=== PATIENT | female | born 1985 | race Caucasian/White ===

== ENCOUNTER 2017-03-13 21:21 | Emergency (ER) | payer SELFPAY ==
[2015-11-19 11:17] VITALS: Wt 72.6 kg
[~2017-03-13 21:21] MED LIST: ACE3 PO; ACET-1966 PO; ALB18R INH; ALBU8.5H IH; ALPR-429 PO; AMPH30TA10 PO; ASCO250T86 PO; AZIT-18 PO; BCP; BENZ200C15 PO; BUP75 PO; CEPH500C24 PO; CLIN-75 PO; CLIN300C99 PO; CYC10 PO; CYCL10TA29 PO; DEXT10CA2 PO; DEXT10TA9 PO; DICL-195 PO; DICY20TA70 PO; DIPH-740 PO; DOCU-416 PO; DOXY150T6 PO; ESC10 PO; FERR-41 PO; FLUC150T40 PO; GUAI600T57 PO; HYDR-385 PO; HYDR-4309 PO; HYDR25CA83 PO; IBU600 PO; IBU800 PO; IBUP-56 PO; KET10 PO; LEVE500T73 PO; LOR5 PO; LOR5/325 PO; MED150I IM; META-1 PO; METR250 PO; MULT-1379 PO; NAPR-724 PO; NIC10R INH; ONDA4TAB PO; ONDA4TAB97 PO; PER PO; PRE20 PO; PREN-85 PO; PROM5SYR PO; TRAM-420 PO; TRAM-627 PO; VENL37.594 PO; VICODIN
[2017-03-13 21:25] VITALS: BP 139/94
[2017-03-13] MEDS ORDERED: APAP/HYDROCODONE 325/5 TAB PO ONE (21:35)
[2017-03-13] MEDS ORDERED: cefTRIAXone 1 GM VIAL IVP ONE (21:35)
[2017-03-13] MEDS ORDERED: LOR5/325 PO (21:35)
[2017-03-13] MEDS ORDERED: CEF300 PO (21:35)
[2017-03-13] MEDS ORDERED: ACET/HYDROC 5/325MG TH ER ONLY 2 TAB/BOTTLE PO ONE (21:35)
--- NOTE | 2017-03-13 21:36 | ER Report ---
History and Physical Time Seen By MD: 21:26 Hx. of Stated Complaint: SEVERE EAR PAIN L SIDE SINCE LAST WEEK, WORSENING; DIARRHEA HPI/ROS CHIEF COMPLAINT: ear pain HISTORY OF PRESENT ILLNESS: Has had several days of ear pain in left ear. Much worse tonight. Even light touch or gentle movements cause severe pain. No drainage. No fevers. No oral or dental pain. Mild cough. No shortness of breath. Allergies: Coded Allergies: penicillin G (Verified Allergy, Unknown, UNKNOWN, 01/02/17) PT STATES MOTHER SAID SHE HAD A REACTION A CHILD BUT PT DOESN'T KNOW WHAT IT WAS. tramadol (Verified Adverse Reaction, Unknown, seizure, 01/02/17) Home Meds Active Scripts Hydrocodone Bit/Acetaminophen (HYDROCODON-ACETAMINOPHEN 5-325) 1 Each Tablet, 1 EACH PO Q4H Y for PAIN, #8 TAB 0 Refills Prov:ANITA RODRIGUEZ MD 03/13/17 Cefdinir 300 Mg Cap (OMNICEF 300 MG CAP (OR EQUIV)) 300 Mg Cap, 300 MG PO BID, # 20 CAP 0 Refills Prov:ANITA RODRIGUEZ MD 03/13/17 Reported Medications Amphet Asp/Amphet/D-Amphet (ADDERALL 30 MG TABLET) 30 Mg Tablet, 30 MG PO BID Take at 9:00am and noon 12/30/13 Discontinued Scripts Hydrocodone Bit/Acetaminophen (HYDROCODON-ACETAMINOPHEN 5-325) 1 Each Tablet, 1 EACH PO Q4-6H Y for PAIN, #10 TAB Prov:REDDY NOVAK [facility] 01/02/17 Clindamycin Hcl (CLINDAMYCIN HCL) 300 Mg Capsule, 300 MG PO Q6H, #40 CAPSULE Prov:REDDY NOVAK [facility] 01/02/17 Reviewed Nurses Notes: Yes Hx Smoking: Yes Smoking Status: Current: Every Day Smoker Exposure to Second Hand Smoke?: Yes Hx Substance Use Disorder: No Hx Alcohol Use: Yes (occ) Constitutional Vital Sign - Last 24 Hours 03/13/17 21:25 Temp 98.0 Pulse 117 Resp 18 B/P (MAP) 139/94 Pulse Ox 99 O2 Delivery Room Air Physical Exam General Appearance: The patient is alert, tearful, acute distress due to pain. Eyes: Pupils equal and round no injection. ENT: Normal oral mucosa. Moist mucous membranes. TM on the left is bulging, red. Some redness and swelling in canal as well. Neck: Neck is supple and non tender. DIFFERENTIAL DIAGNOSIS: After history and physical exam differential diagnosis was considered for otitis media. Medical Decision Making ED Course/Re-evaluation ED Course Rocephin 1mg IM given. Started on Omnicef. Given Lortab for pain. See instructions. Decision to Disposition Date: Mar 13, 2017 Decision to Disposition Time: 21:34 Depart Departure Latest Vital Signs Vital Signs Date Time Temp Pulse Resp B/P (MAP) Pulse Ox O2 Delivery O2 Flow Rate FiO2 03/13/17 21:25 98.0 117 18 139/94 99 Room Air Impression: Primary Impression: Otitis media Condition: Improved Disposition: HOME OR SELF-CARE New Scripts Hydrocodone Bit/Acetaminophen (HYDROCODON-ACETAMINOPHEN 5-325) 1 Each Tablet 1 EACH PO Q4H Y for PAIN, #8 TAB 0 Refills Prov: ANITA RODRIGUEZ MD 03/13/17 Cefdinir 300 Mg Cap (OMNICEF 300 MG CAP (OR EQUIV)) 300 Mg Cap 300 MG PO BID, #20 CAP 0 Refills Prov: ANITA RODRIGUEZ MD 03/13/17 Patient Instructions: Otitis Media (ED) Additional Instructions: Take the antibiotic Omnicef 300mg twice a day for 3 days. Take Ibuprofen 200mg over the counter tablets, 4 tablets every 8 hours for pain. Take Lortab 5/325, one every 4 hours as needed for pain. Problem Qualifiers Primary Impression: Otitis media Otitis media type: suppurative Chronicity: acute Laterality: left Recurrence: not specified as recurrent Spontaneous tympanic membrane rupture: without spontaneous rupture Qualified Codes: H66.002 - Acute suppurative otitis media without spontaneous rupture of ear drum, left ear ANITA RODRIGUEZ MD Mar 13, 2017 21:36
[2017-03-13] MEDS ORDERED: LIDOCAINE 1% MDV 200 MG/20 ML INJ ONE (21:40)
[2017-03-13] MEDS ORDERED: cefTRIAXone 1 GM VIAL IM ONE (21:40)
== END 2017-03-13 22:00 | disposition home or self-care (01) ==
LOC: ER 21:39
DX: H66.002 Acute suppurative otitis media without spontaneous rupture of ear drum, left ear (principal)
CPT/HCPCS: 96372; 99282; J0696; J2001

== ENCOUNTER 2017-08-18 13:30 | Emergency (ER) | payer SELFPAY ==
[2015-11-19 11:17] VITALS: Wt 74.8 kg
[~2017-08-18 13:30] MED LIST changes: +CEF300 PO; -NAPR-724 PO; +NAPR500T31 PO
[2017-08-18] MEDS ORDERED: CEPH500T7 PO (13:46)
--- NOTE | 2017-08-18 13:47 | ER Report ---
History and Physical Time Seen By MD: 13:33 Hx. of Stated Complaint: PATIENT REPORTS 3 DAYS OF DENTAL PAIN ON THE RIGHT SIDE OF HER MOUTH. SHE CANNOT GET INTO HER DENTIST FOR 2 WEEKS HPI/ROS CHIEF COMPLAINT: Dental pain HISTORY OF PRESENT ILLNESS: 32-year-old female patient presents to emergency room with complaint of dental pain. Patient states she's been having problems with past will days. States she's having a difficult time eating due to the pain. She states she has not had any improvement with any [id number] medication. Patient denies any fevers, chills, nausea, vomiting or diarrhea. Allergies: Coded Allergies: penicillin G (Verified Allergy, Unknown, UNKNOWN, 01/02/17) PT STATES MOTHER SAID SHE HAD A REACTION A CHILD BUT PT DOESN'T KNOW WHAT IT WAS. tramadol (Verified Adverse Reaction, Unknown, seizure, 01/02/17) Home Meds Active Scripts Cephalexin 500 Mg Tab (KEFLEX 500 MG TAB) 500 Mg Tablet, 500 MG PO Q6H, #28 TAB Prov:REDDY NOVAK [facility] 08/18/17 Reported Medications Amphet Asp/Amphet/D-Amphet (ADDERALL 30 MG TABLET) 30 Mg Tablet, 30 MG PO BID Take at 9:00am and noon 12/30/13 Discontinued Scripts Hydrocodone Bit/Acetaminophen (HYDROCODON-ACETAMINOPHEN 5-325) 1 Each Tablet, 1 EACH PO Q4H Y for PAIN, #8 TAB 0 Refills Prov:ANITA RODRIGUEZ MD 03/13/17 Cefdinir 300 Mg Cap (OMNICEF 300 MG CAP (OR EQUIV)) 300 Mg Cap, 300 MG PO BID, # 20 CAP 0 Refills Prov:ANITA RODRIGUEZ MD 03/13/17 Hx Smoking: Yes Smoking Status: Current: Every Day Smoker Exposure to Second Hand Smoke?: Yes Hx Substance Use Disorder: No Hx Alcohol Use: Yes (occ) Constitutional Vital Sign - Last 24 Hours 08/18/17 08/18/17 13:34 13:52 Temp 98.2 Pulse 90 112 Resp 20 16 B/P (MAP) 125/88 103/66 (78) Pulse Ox 97 100 O2 Delivery Room Air Room Air Physical Exam General appearance: Alert no distress. Respiratory: Chest is non tender, lungs are clear to auscultation. Cardiac: Regular rate and rhythm. ENT: Patient has poor dentition, she has several missing teeth and several that have significant caries. DIFFERENTIAL DIAGNOSIS: After history and physical exam differential diagnosis was considered for dental pain Medical Decision Making ED Course/Re-evaluation ED Course Patient is admitted and examined, history and physical were obtained. Differential diagnoses were considered. On examination patient had dental pain. She was offered a dental block. She refused that. Patient will be discharged on antibiotics. She is follow-up with her dentist as soon as possible. Patient verbalized understanding and agreement with plan. Decision to Disposition Date: Aug 18, 2017 Decision to Disposition Time: 13:47 Depart Departure Latest Vital Signs Vital Signs Date Time Temp Pulse Resp B/P (MAP) Pulse Ox O2 Delivery O2 Flow Rate FiO2 08/18/17 13:52 112 16 103/66 (78) 100 Room Air 08/18/17 13:34 98.2 Impression: Primary Impression: Toothache Condition: Improved Disposition: HOME OR SELF-CARE New Scripts Cephalexin 500 Mg Tab (KEFLEX 500 MG TAB) 500 Mg Tablet 500 MG PO Q6H, #28 TAB Prov: REDDY NOVAK 08/18/17 Patient Instructions: Toothache (ED) Additional Instructions: You may take Ibuoprofen or Tylenol as needed for pain. Rinse mouth with warm salt water after every meal. Eat soft foods. Follow up with your dentist as soon as possible, call to make an appointment. Return to the ER if condition worsens. REDDY NOVAK Aug 18, 2017 13:47
[2017-08-18 13:52] VITALS: BP 103/66
== END 2017-08-18 13:53 | disposition home or self-care (01) ==
LOC: ER 13:42
DX: K08.89 Other specified disorders of teeth and supporting structures (principal)
CPT/HCPCS: 99281

== ENCOUNTER 2017-10-07 17:32 | Emergency (ER) | payer SELFPAY ==
[2015-11-19 11:17] VITALS: Wt 79.4 kg
[~2017-10-07 17:32] MED LIST changes: +CEPH500T7 PO
--- NOTE | 2017-10-07 17:37 | ER Report ---
History and Physical Time Seen By MD: 17:38 HPI/ROS CHIEF COMPLAINT: Bump and armpit HISTORY OF PRESENT ILLNESS: This is a 32-year-old female who presents to the emergency department for a "bump in her right armpit". Patient states that about 2-3 days ago she developed a couple bumps in her right axilla, progressively getting worse now significantly more painful unable to completely adduct the arm. Denies fevers or chills. Denies nausea or vomiting. Does appear to be 2 separate abscesses. REVIEW OF SYSTEMS: Respiratory: No cough, no dyspnea. Cardiovascular: No chest pain, no palpitations. Gastrointestinal: No vomiting, no abdominal pain. Musculoskeletal: No back pain. Integumentary: As above. Allergies: Coded Allergies: Penicillins (Verified Allergy, Mild, unknown, 10/07/17) tramadol (Verified Adverse Reaction, Unknown, seizure, 10/07/17) Home Meds Active Scripts Cyclobenzaprine Hcl (CYCLOBENZAPRINE HCL) 10 Mg Tablet, 5-10 MG PO TID PRN for MUSCLE SPASMS, #9 TAB 0 Refills Prov:[facility] 10/07/17 Sulfamethoxazole/Trimet 800-160 Mg Tab (BACTRIM DS TABLET) 1 Each Tablet, 1 TAB PO Q12H, #20 TAB 0 Refills Prov:GRACE CHAMBERS [facility] 10/07/17 Reported Medications Amphet Asp/Amphet/D-Amphet (ADDERALL 30 MG TABLET) 30 Mg Tablet, 30 MG PO BID Take at 9:00am and noon 12/30/13 Discontinued Scripts Cephalexin 500 Mg Tab (KEFLEX 500 MG TAB) 500 Mg Tablet, 500 MG PO Q6H, #28 TAB Prov:REDDY NOVAK [facility] 08/18/17 Past Medical/Surgical History The patient has a past medical and surgical history of wears glasses, cholecystectomy, appendectomy, hysterectomy, tubal ligation, tonsillectomy. Reviewed Nurses Notes: Yes Hx Smoking: Yes Smoking Status: Current: Every Day Smoker Exposure to Second Hand Smoke?: Yes Hx Substance Use Disorder: No Hx Alcohol Use: Yes (occ) Constitutional Vital Sign - Last 24 Hours 10/07/17 10/07/17 17:38 18:24 Temp 98.1 Pulse 100 98 Resp 16 B/P (MAP) 139/96 138/92 (107) Pulse Ox 97 O2 Delivery Room Air Physical Exam General Appearance: The patient is alert, has no immediate need for airway protection and no current signs of toxicity. Eyes: Pupils equal and round no injection. Respiratory: Chest is non tender, lungs are clear to auscultation. Cardiac: regular rate and rhythm. Gastrointestinal: Abdomen is soft and non tender, no masses, bowel sounds normal. Musculoskeletal: Neck: Neck is supple and non tender. Extremities have full range of motion and are non tender. Skin: 2 adjacent abscesses to the right axilla, fluctuant, with some surrounding erythema. No lymphadenopathy. DIFFERENTIAL DIAGNOSIS: After history and physical exam differential diagnosis was considered for abscess. Medical Decision Making ED Course/Re-evaluation ED Course Procedure: Abscess drainage. The patient's abscess was located on the right axilla. I obtained verbal consent from the patient to drain the abscess who was informed about the possibility of bleeding and pain. The abscess was incised with a scalpel and a small amount of purulent drainage was expressed. I irrigated the wound and placed some packing. The patient tolerated the procedure well. The procedure was performed by myself. Decision to Disposition Date: Oct 07, 2017 Decision to Disposition Time: 18:19 Depart Departure Latest Vital Signs Vital Signs Date Time Temp Pulse Resp B/P (MAP) Pulse Ox O2 Delivery O2 Flow Rate FiO2 10/07/17 18:24 98 138/92 (107) 10/07/17 17:38 98.1 16 97 Room Air Impression: Primary Impression: Axillary abscess Condition: Improved Disposition: HOME OR SELF-CARE Referrals: YANE LOUIE MD (PCP) New Scripts Cyclobenzaprine Hcl (CYCLOBENZAPRINE HCL) 10 Mg Tablet 5-10 MG PO TID PRN for MUSCLE SPASMS, #9 TAB 0 Refills Prov: [facility] 10/07/17 Sulfamethoxazole/Trimet 800-160 Mg Tab (BACTRIM DS TABLET) 1 Each Tablet 1 TAB PO Q12H, #20 TAB 0 Refills Prov: [facility]ACE [facility]ERS [facility] 10/07/17 Patient Instructions: Abscess (ED) Additional Instructions: Take the antibiotics as prescribed. apply a warm compress to the wound every few hours. Take the Flexeril for severe pain. Take ibuprofen or Tylenol for moderate pain. Return in 1-2 days to have the packing removed and reevaluation. Drink plenty of water. Get plenty of rest. Return to the ER for any other concerns or worsening symptoms. [facility] Oct 07, 2017 17:37
[2017-10-07] MEDS ORDERED: CYCL10TA29 PO (18:16)
[2017-10-07] MEDS ORDERED: SULF-198 PO (18:16)
[2017-10-07 18:24] VITALS: BP 138/92
== END 2017-10-07 18:24 | disposition home or self-care (01) ==
LOC: ER 17:35
DX: L02.411 Cutaneous abscess of right axilla (principal); A49.01 Methicillin susceptible Staphylococcus aureus infection, unspecified site
CPT/HCPCS: 87070; 87077; 87186; 99284

== ENCOUNTER 2018-01-27 08:16 | Emergency (ER) | payer SELFPAY ==
[2015-11-19 11:17] VITALS: Wt 79.4 kg
[~2018-01-27 08:16] MED LIST changes: -HYDR-4309 PO; +HYDR-653 PO; +SULF-198 PO
[2018-01-27 08:20] VITALS: BP 129/85
[2018-01-27] MEDS ORDERED: LOR5/325 PO (08:28)
[2018-01-27] MEDS ORDERED: CEPH500T7 PO (08:28)
--- NOTE | 2018-01-27 08:30 | ER Report ---
History and Physical Time Seen By MD: 08:24 HPI/ROS CHIEF COMPLAINT: Dental pain HISTORY OF PRESENT ILLNESS: Patient is a 32-year-old female who presents with right lower dental pain. Symptoms began approximately 2 weeks ago patient was treating with oral Motrin Tylenol but today hematuria the emergency department because of 10 out of 10 pain. She states she tried to follow up with the dentist but they're booked. She also tried to go to the free clinic yesterday but was unable to be seen. She denies any fevers or chills. She states that the pressure to the tooth causes severe pain as does eating. He further states she has pain radiates to along the jawline on the right side and the right ear. Allergies: Coded Allergies: Penicillins (Verified Allergy, Mild, unknown, 10/07/17) tramadol (Verified Adverse Reaction, Unknown, seizure, 10/07/17) Home Meds Active Scripts Cyclobenzaprine Hcl (CYCLOBENZAPRINE HCL) 10 Mg Tablet, 5-10 MG PO TID PRN for MUSCLE SPASMS, #9 TAB 0 Refills Prov:[facility] 10/07/17 Sulfamethoxazole/Trimet 800-160 Mg Tab (BACTRIM DS TABLET) 1 Each Tablet, 1 TAB PO Q12H, #20 TAB 0 Refills Prov:[facility] 10/07/17 Reported Medications Amphet Asp/Amphet/D-Amphet (ADDERALL 30 MG TABLET) 30 Mg Tablet, 30 MG PO BID Take at 9:00am and noon 12/30/13 Past Medical/Surgical History Noncontributory towards this chief complaint. Hx Smoking: Yes Smoking Status: Current: Every Day Smoker Exposure to Second Hand Smoke?: Yes Hx Substance Use Disorder: No Hx Alcohol Use: Yes (occ) Physical Exam General Appearance: Alert, no distress. Eyes: Pupils equal and round no pallor or injection. [ENT, Mouth:] Ears: Tympanic membranes are normal. Nose: No bleeding. Mouth: Mucous membranes are moist. Patient has a fractured right 3rd maxillary molar there is no surrounding erythema or gingivitis. No evidence of abscess. Throat: No erythema or exudates there is no tonsillar hypertrophy and uvula is midline. Musculoskeletal: Neck is supple non tender, no adenopathy. Medical Decision Making ED Course/Re-evaluation ED Course 01/27/2018 8:27:07 am plan at this time will be oral pain medication along with antibiotics and having the patient follow up with her dentist. Decision to Disposition Date: Jan 27, 2018 Decision to Disposition Time: 08:27 Depart Departure Impression: Primary Impression: Pain, dental Condition: Improved Disposition: HOME OR SELF-CARE Referrals: YANE LOUIE MD (PCP) New Scripts Cephalexin 500 Mg Tab (KEFLEX 500 MG TAB) 500 Mg Tablet 500 MG PO Q6H, #28 TAB 0 Refills TAKE ONE TABLET BY MOUTH EVERY SIX HOURS Prov: MAISHA FLOYD MD 01/27/18 Patient Instructions: Dental Caries (ED) Additional Instructions: Call and schedule a follow-up appointment with your dentist. MAISHA FLOYD MD Jan 27, 2018 08:30
== END 2018-01-27 08:41 | disposition home or self-care (01) ==
LOC: ER 08:21
DX: K08.89 Other specified disorders of teeth and supporting structures (principal)
CPT/HCPCS: 99281

== ENCOUNTER 2018-04-13 09:42 | Emergency (ER) | payer SELFPAY ==
[2015-11-19 11:17] VITALS: Wt 77.1 kg
[2018-04-13 09:46] VITALS: BP 122/78
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
--- NOTE | 2018-04-13 11:08 | RADIOLOGY IMAGING REPORT ---
FACILITY: [facility] PATIENT NAME: Maddison Macias : 1985 MR: [id number] V: [id number] EXAM DATE: ORDERING PHYSICIAN: URSULA VALENTIN TECHNOLOGIST: Location: [facility] [place] Patient: Maddison Macias : 1985 Visit/Account:[id number] Date of Sevice: 04/13/2018 Exam type: KNEE 3 VIEW LEFT History: L this morning, pain lateral aspect Comparison: None. Findings: Three views of the left knee were submitted. There is a subtle lucency along the medial aspect of th e proximal metaphysis of the left fibula this may represent a vascular groove although possibility of a nondisplaced fracture cannot be excluded in light of the clinical history of trauma and pain in th is location. This mild soft tissue prominence over the anterior aspect of the left knee IMPRESSION: 1. There is a subtle lucency along the medial aspect of the proximal metaphysis left fibula which ma y represent a vascular groove versus a nondisplaced fracture. Report Dictated By: Siri Duarte MD at 04/13/2018 11:01 AM Report E-Signed By: Siri Duarte MD at 04/13/2018 11:03 AM WSN:[email or web address]
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
== END 2018-04-13 12:30 | disposition home or self-care (01) ==
LOC: ER 09:42
DX: S80.02XA Contusion of left knee, initial encounter (principal); W18.30XA Fall on same level, unspecified, initial encounter; F17.200 Nicotine dependence, unspecified, uncomplicated
CPT/HCPCS: 73562; 73700; 99284; L1830

== ENCOUNTER 2018-06-22 09:35 | Emergency (ER) | payer SELFPAY ==
[2015-11-19 11:17] VITALS: Wt 77.1 kg
[2018-06-22 09:39] VITALS: BP 128/93
[2018-06-22] MEDS ORDERED: CYCL10TA29 PO (09:47)
--- NOTE | 2018-06-22 09:48 | ER Report ---
History and Physical Time Seen By MD: 09:43 Hx. of Stated Complaint: LOW BACK PAIN AFTER LIFTING WHILE MOVING. "I INJURED IT A FEW YEARS AGO AND NOW ITS WORSE" HPI/ROS CHIEF COMPLAINT: Low back pain HISTORY OF PRESENT ILLNESS: Patient is a 32-year-old female comes back to the emergency Department today with complaint of low back pain and right-sided sciatica pain. Patient states she's had this many times before was lifting some boxes on her family are moving and felt a twinge sore low back and her right leg patient states has no urinary bladder bowel incontinence and numbness of subtle paresthesias no traumas no falls. Patient has been to the emergency department over 30 times for various pain related complaints. Patient states that the pain is consistent with prior episode she took ibuprofen and some Tylenol a little to no benefit patient has no additional complaints at this time REVIEW OF SYSTEMS: Respiratory: No cough, no dyspnea. Cardiovascular: No chest pain, no palpitations. Gastrointestinal: No vomiting, no abdominal pain. Musculoskeletal: Low back pain sciatica Allergies: Coded Allergies: Penicillins (Verified Allergy, Mild, unknown, 06/22/18) tramadol (Verified Adverse Reaction, Unknown, seizure, 06/22/18) Home Meds Reported Medications Amphet Asp/Amphet/D-Amphet (ADDERALL 30 MG TABLET) 30 Mg Tablet, 30 MG PO BID Take at 9:00am and noon 12/30/13 Reviewed Nurses Notes: Yes Old Medical Records Reviewed: Yes Hx Smoking: Yes Smoking Status: Current: Every Day Smoker Exposure to Second Hand Smoke?: Yes Hx Substance Use Disorder: No Hx Alcohol Use: Yes (occ) Constitutional Vital Sign - Last 24 Hours 06/22/18 09:39 Temp 97.7 Pulse 118 Resp 20 B/P (MAP) 128/93 Pulse Ox 97 O2 Delivery Room Air Physical Exam General Appearance: The patient is alert, has no immediate need for airway protection and no current signs of toxicity. [ ] Eyes: Pupils equal and round no injection. Respiratory: Chest is non tender, lungs are clear to auscultation. Cardiac: regular rate and rhythm [ ] Gastrointestinal: Abdomen is soft and non tender, no masses, bowel sounds normal. Musculoskeletal: Back examination shows a negative straight leg lift negative hip adduction negative flexion of the lumbar spine no acute findings of note Neck is supple and non tender. Extremities have full range of motion and are non tender. Skin: No rashes or lesions. [ ] DIFFERENTIAL DIAGNOSIS: After history and physical exam differential diagnosis was considered for herniated disc sciatica acute on chronic back pain Medical Decision Making ED Course/Re-evaluation ED Course ED level course 32-year-old female presented with acute on chronic back pain or urinary bladder bowel Kinast numbness of subtle paresthesias no indication of doing additional imaging at this time physical exam is completely benign advised her to continue the anti-inflammatories will not prescribe narcotics due to the pain related complaint history in the emergency department I don't think it's indicated at this time I did recommend her taking an nonnarcotic anti- inflammatory and a muscle relaxer and follow-up with primary care which I will sign today Decision to Disposition Date: June 22, 2018 Decision to Disposition Time: 09:45 Depart Departure Latest Vital Signs Vital Signs Date Time Temp Pulse Resp B/P (MAP) Pulse Ox O2 Delivery O2 Flow Rate FiO2 06/22/18 09:39 97.7 118 20 128/93 97 Room Air Impression: Primary Impression: Acute low back pain with sciatica Condition: Condition Unchanged Disposition: HOME OR SELF-CARE Referrals: MARYCHUY ZAMBRANO APRN [facility] 5 Days New Scripts Cyclobenzaprine Hcl (CYCLOBENZAPRINE HCL) 10 Mg Tablet 10 MG PO TID, #9 TAB Prov: URSULA VALENTIN MD 06/22/18 Departure Forms: Medications Reconciliation, Patient Portal Information, ER Transition Record URSULA VALENTIN MD June 22, 2018 09:48
== END 2018-06-22 09:53 | disposition home or self-care (01) ==
LOC: ER 09:39
DX: M54.5 Low back pain (principal); M54.30 Sciatica, unspecified side
CPT/HCPCS: 99281